=== PATIENT | female | born 1935 | race Caucasian/White ===

== ENCOUNTER 2017-11-12 10:46 | Inpatient (IN) | payer BC ==
[~2017-11-12] VITALS: Ht 160 cm; Wt 72.6 kg
[2017-11-12 10:56] VITALS: BP_SYST 137
[2017-11-12] MEDS ORDERED: ALBUTEROL SULFATE 0.083% 2.5 MG/3 ML VIAL.NEB IH ONE (11:00)
[2017-11-12] MEDS ORDERED: IPRATROPIUM BROM 0.5 MG/2.5 ML VIAL.NEB (ATROVENT) IH ONE (11:00)
[2017-11-12 11:26] LABS: HEMATOCRIT 34.2 % (36-48); HEMOGLOBIN 11.6 g/dL (12.0-16.0); MEAN CORPUSCULAR HEMOGLOBIN 34 pg (27-31); MEAN CORPUSCULAR HGB CONC 34 % (32-36); MEAN CORPUSCULAR VOLUME 101 fL (79.0-98.0); PLATELET COUNT (AUTO) 131 K/uL (130-430); RED BLOOD CELL COUNT(AUTO) 3.37 MIL/uL (4.2-6.2); RED CELL DISTRIBUTION WIDTH 12.7 % (9.0-15.0)
[2017-11-12] MEDS ORDERED: ACETAMINOPHEN 325 MG TABLET PO ONE (11:30)
[2017-11-12] MEDS ORDERED: AZIT250T PO (11:31)
[2017-11-12] MEDS ORDERED: GLUXR500 PO (11:31)
[2017-11-12] MEDS ORDERED: LOSA25TA3 PO (11:31)
[2017-11-12] MEDS ORDERED: AMOX-426 PO (11:31)
[2017-11-12] MEDS ORDERED: DILT-36 PO (11:31)
[2017-11-12] MEDS ORDERED: PHEL5 PO (11:31)
[2017-11-12 11:36] LABS: CALCIUM 8.9 mg/dL (8.4-11.0); CREATININE 0.99 mg/dL (0.55-1.30); GLUCOSE 137 mg/dL (70-99); POTASSIUM 3.7 mmol/L (3.5-5.1); UREA NITROGEN, BLOOD 17 mg/dL (8-21)
[2017-11-12 11:39] LABS: ANION GAP 10 (5-15); SODIUM SERUM 120 mmol/L (136-145)
[2017-11-12 11:40] LABS: CHLORIDE 86 mmol/L (98-107)
[2017-11-12 11:41] LABS: ALANINE AMINOTRANSFERASE 30 U/L (12-78); ALBUMIN 3.5 g/dL (3.4-4.8); ASPARTATE AMINOTRANSFERASE 30 U/L (10-37); TOTAL BILIRUBIN 1.1 mg/dL (0.0-1.0)
[2017-11-12 11:42] LABS: WHITE BLOOD COUNT (AUTO) 56.5 K/uL (4.8-10.8)
[2017-11-12 11:44] LABS: ATYPICAL LYMPHOCYTES % 48 % (0-0); BASOPHILS % (MANUAL) 0 % (0-2); EOSINOPHILS % (MANUAL) 0 % (0-7); LYMPHOCYTES % (MANUAL) 40 % (20-46); MONOCYTES % (MANUAL) 0 % (0-11)
[2017-11-12 12:04] LABS: BILIRUBIN,URINE NEGATIVE (NEGATIVE); BLOOD, URINE 3+ (NEGATIVE); CLARITY/URINE CLEAR (CLEAR); COLOR,URINE YELLOW (YELLOW); GLUCOSE,URINE NEGATIVE (NEGATIVE); KETONES,URINE 1+ (NEGATIVE); LEUKOCYTE ESTERASE ,URINE NEGATIVE (NEGATIVE); NITRITE, URINE NEGATIVE (NEGATIVE); PH,URINE 5.5 (5.0-8.0); PROTEIN URINE 2+ (NEGATIVE)
[2017-11-12] MEDS ORDERED: cefTRIAXone 1 GM IVPB PREMIX 50 ML IV ONE (12:15)
[2017-11-12] MEDS ORDERED: NACL 0.9% 1,000 ML IV ONE (12:15)
[2017-11-12 12:22] LABS: BACTERIA,URINE FEW /HPF (None Seen); RBC,URINE 20-50 /HPF (0-3); WBC,URINE 0-3 /HPF (0-3)
[2017-11-12 12:55] VITALS: BP_SYST 97
[2017-11-12 12:57] VITALS: BP_SYST 137
[2017-11-12] MEDS: NACL 0.9% 1,000 ML IV SCH (13:00)
[2017-11-12] MEDS ORDERED: DEXTROSE 50% JECT 50 ML DISP.SYRIN IVP PRN (13:00)
[2017-11-12] MEDS ORDERED: ALBUTEROL SULFATE 0.083% 2.5 MG/3 ML VIAL.NEB INH PRN (13:00)
[2017-11-12] MEDS ORDERED: IPRATROPIUM BROM 0.5 MG/2.5 ML VIAL.NEB (ATROVENT) INH PRN (13:00)
[2017-11-12] MEDS ORDERED: IPRATROPIUM BROM 0.5 MG/2.5 ML VIAL.NEB (ATROVENT) INH ONE (13:28)
[2017-11-12] MEDS: AZITHROMYCIN 500 MG in NS 250 ML IV SCH (16:02)
[2017-11-12 16:18] VITALS: BP_SYST 109
[2017-11-12] MEDS: INSULIN REGULAR, HUMAN 100 UNITS/ML, 10 ML VIAL (novoLIN R) SUBCUT PRN (17:21)
[2017-11-12] MEDS: IPRATROPIUM BROM 0.5 MG/2.5 ML VIAL.NEB (ATROVENT) INH SCH (19:46)
[2017-11-12] MEDS: ALBUTEROL SULFATE 0.083% 2.5 MG/3 ML VIAL.NEB INH SCH (19:46)
[2017-11-12 21:35] VITALS: BP_SYST 108
[2017-11-13] MEDS: IPRATROPIUM BROM 0.5 MG/2.5 ML VIAL.NEB (ATROVENT) INH SCH ×4 (00:58→19:30)
[2017-11-13] MEDS: ALBUTEROL SULFATE 0.083% 2.5 MG/3 ML VIAL.NEB INH SCH ×4 (00:59→19:30)
[2017-11-13 02:38] VITALS: BP_SYST 107
[2017-11-13] MEDS: NACL 0.9% 1,000 ML IV SCH (05:33)
[2017-11-13 08:05] VITALS: BP_SYST 116
[2017-11-13] MEDS: cefTRIAXone 1 GM in D5W 50 ML IV SCH (08:45)
[2017-11-13] MEDS: LOSARTAN POTASSIUM 25 MG TABLET PO SCH (08:46)
[2017-11-13] MEDS: DILTIAZEM HCL 180 MG CAP.SR.24H PO SCH (08:47)
[2017-11-13] MEDS ORDERED: methylPREDNISolone SOD SUCC/PF 62.5 MG/ML VIAL IVP ONE (09:00)
[2017-11-13 09:09] LABS: HEMATOCRIT 31.4 % (36-48); HEMOGLOBIN 10.4 g/dL (12.0-16.0); MEAN CORPUSCULAR HEMOGLOBIN 34 pg (27-31); MEAN CORPUSCULAR HGB CONC 33 % (32-36); MEAN CORPUSCULAR VOLUME 102 fL (79.0-98.0); PLATELET COUNT (AUTO) 134 K/uL (130-430); RED BLOOD CELL COUNT(AUTO) 3.09 MIL/uL (4.2-6.2); RED CELL DISTRIBUTION WIDTH 12.8 % (9.0-15.0)
[2017-11-13 09:15] LABS: WHITE BLOOD COUNT (AUTO) 48.7 K/uL (4.8-10.8)
[2017-11-13 09:22] LABS: ANION GAP 8 (5-15); CALCIUM 8.7 mg/dL (8.4-11.0); CHLORIDE 87 mmol/L (98-107); CREATININE 1.08 mg/dL (0.55-1.30); GLUCOSE 137 mg/dL (70-99); POTASSIUM 3.6 mmol/L (3.5-5.1); SODIUM SERUM 121 mmol/L (136-145); UREA NITROGEN, BLOOD 20 mg/dL (8-21)
[2017-11-13 09:31] LABS: ALANINE AMINOTRANSFERASE 28 U/L (12-78); ALBUMIN 3.2 g/dL (3.4-4.8); ASPARTATE AMINOTRANSFERASE 29 U/L (10-37)
[2017-11-13 09:35] LABS: TOTAL BILIRUBIN 0.5 mg/dL (0.0-1.0)
[2017-11-13 10:04] LABS: ATYPICAL LYMPHOCYTES % 35 % (0-0); BAND % (MANUAL) 0 % (0-6); BASOPHILS % (MANUAL) 0 % (0-2); EOSINOPHILS % (MANUAL) 0 % (0-7); LYMPHOCYTES % (MANUAL) 58 % (20-46); MONOCYTES % (MANUAL) 0 % (0-11)
[2017-11-13] MEDS: AZITHROMYCIN 500 MG in NS 250 ML IV SCH (12:12)
[2017-11-13 12:14] VITALS: BP_SYST 110
[2017-11-13] MEDS: methylPREDNISolone SOD SUCC/PF 62.5 MG/ML VIAL IVP SCH ×2 (14:50→21:15)
[2017-11-13 16:08] VITALS: BP_SYST 103
[2017-11-13] MEDS: INSULIN REGULAR, HUMAN 100 UNITS/ML, 10 ML VIAL (novoLIN R) SUBCUT PRN (18:05)
[2017-11-13] MEDS ORDERED: FUROSEMIDE 20 MG/2 ML VIAL IVP ONE (19:30)
[2017-11-13 20:10] VITALS: BP_SYST 113
[2017-11-13 23:50] VITALS: BP_SYST 98
[2017-11-14] MEDS: ALBUTEROL SULFATE 0.083% 2.5 MG/3 ML VIAL.NEB INH SCH ×4 (00:02→19:40)
[2017-11-14] MEDS: IPRATROPIUM BROM 0.5 MG/2.5 ML VIAL.NEB (ATROVENT) INH SCH ×4 (00:02→19:40)
[2017-11-14] MEDS: INSULIN REGULAR, HUMAN 100 UNITS/ML, 10 ML VIAL (novoLIN R) SUBCUT PRN ×5 (00:42→23:36)
[2017-11-14] MEDS: NACL 0.9% 1,000 ML IV SCH ×2 (05:18→15:00)
[2017-11-14] MEDS: methylPREDNISolone SOD SUCC/PF 62.5 MG/ML VIAL IVP SCH ×3 (06:12→21:31)
[2017-11-14 07:14] LABS: HEMOGLOBIN 9.8 g/dL (12.0-16.0); MEAN CORPUSCULAR HEMOGLOBIN 34 pg (27-31); MEAN CORPUSCULAR HGB CONC 34 % (32-36); MEAN CORPUSCULAR VOLUME 101 fL (79.0-98.0); RED BLOOD CELL COUNT(AUTO) 2.87 MIL/uL (4.2-6.2); RED CELL DISTRIBUTION WIDTH 12.9 % (9.0-15.0)
[2017-11-14 07:27] LABS: WHITE BLOOD COUNT (AUTO) 59.9 K/uL (4.8-10.8)
[2017-11-14 07:39] LABS: ANION GAP 10 (5-15); CALCIUM 8.6 mg/dL (8.4-11.0); CHLORIDE 91 mmol/L (98-107); CREATININE 1.08 mg/dL (0.55-1.30); GLUCOSE 213 mg/dL (70-99); POTASSIUM 3.6 mmol/L (3.5-5.1); SODIUM SERUM 124 mmol/L (136-145); UREA NITROGEN, BLOOD 24 mg/dL (8-21)
[2017-11-14 07:50] VITALS: BP_SYST 125
[2017-11-14] MEDS: LOSARTAN POTASSIUM 25 MG TABLET PO SCH (08:57)
[2017-11-14] MEDS: DILTIAZEM HCL 180 MG CAP.SR.24H PO SCH (08:59)
[2017-11-14] MEDS: cefTRIAXone 1 GM in D5W 50 ML IV SCH (09:00)
[2017-11-14 12:14] LABS: PLATELET COUNT (AUTO) 118 K/uL (130-430)
[2017-11-14] MEDS: AZITHROMYCIN 500 MG in NS 250 ML IV SCH (12:31)
[2017-11-14 13:23] LABS: ATYPICAL LYMPHOCYTES % 21 % (0-0); BASOPHILS % (MANUAL) 0 % (0-2); EOSINOPHILS % (MANUAL) 0 % (0-7); LYMPHOCYTES % (MANUAL) 73 % (20-46); MONOCYTES % (MANUAL) 0 % (0-11)
[2017-11-14 16:51] VITALS: BP_SYST 118
[2017-11-14 20:12] VITALS: BP_SYST 120
[2017-11-14 23:28] VITALS: BP_SYST 134
[2017-11-15] MEDS: ALBUTEROL SULFATE 0.083% 2.5 MG/3 ML VIAL.NEB INH SCH ×4 (01:45→20:29)
[2017-11-15] MEDS: IPRATROPIUM BROM 0.5 MG/2.5 ML VIAL.NEB (ATROVENT) INH SCH ×4 (01:45→20:29)
[2017-11-15] MEDS: methylPREDNISolone SOD SUCC/PF 62.5 MG/ML VIAL IVP SCH (05:27)
[2017-11-15] MEDS: INSULIN REGULAR, HUMAN 100 UNITS/ML, 10 ML VIAL (novoLIN R) SUBCUT PRN ×4 (05:33→23:06)
[2017-11-15 06:56] LABS: HEMATOCRIT 28.5 % (36-48); HEMOGLOBIN 9.4 g/dL (12.0-16.0); MEAN CORPUSCULAR HEMOGLOBIN 34 pg (27-31); MEAN CORPUSCULAR HGB CONC 33 % (32-36); MEAN CORPUSCULAR VOLUME 102 fL (79.0-98.0); PLATELET COUNT (AUTO) 130 K/uL (130-430); RED CELL DISTRIBUTION WIDTH 13.1 % (9.0-15.0)
[2017-11-15 07:09] LABS: WHITE BLOOD COUNT (AUTO) 71.1 K/uL (4.8-10.8)
[2017-11-15 07:15] LABS: ANION GAP 8 (5-15); CALCIUM 8.5 mg/dL (8.4-11.0); CHLORIDE 97 mmol/L (98-107); CREATININE 0.95 mg/dL (0.55-1.30); GLUCOSE 169 mg/dL (70-99); POTASSIUM 3.6 mmol/L (3.5-5.1); SODIUM SERUM 131 mmol/L (136-145); UREA NITROGEN, BLOOD 28 mg/dL (8-21)
[2017-11-15 08:09] VITALS: BP_SYST 122
[2017-11-15] MEDS: NACL 0.9% 1,000 ML IV SCH (08:22)
[2017-11-15] MEDS: cefTRIAXone 1 GM in D5W 50 ML IV SCH (08:22)
[2017-11-15] MEDS: DILTIAZEM HCL 180 MG CAP.SR.24H PO SCH (08:27)
[2017-11-15] MEDS: LOSARTAN POTASSIUM 25 MG TABLET PO SCH (08:28)
[2017-11-15 09:22] VITALS: BP_SYST 136
[2017-11-15 09:42] LABS: ATYPICAL LYMPHOCYTES % 18 % (0-0); BAND % (MANUAL) 1 % (0-6); BASOPHILS % (MANUAL) 0 % (0-2); EOSINOPHILS % (MANUAL) 0 % (0-7); LYMPHOCYTES % (MANUAL) 74 % (20-46); MONOCYTES % (MANUAL) 0 % (0-11)
[2017-11-15 12:06] VITALS: BP_SYST 137
[2017-11-15] MEDS: AZITHROMYCIN 500 MG in NS 250 ML IV SCH (12:08)
[2017-11-15] MEDS ORDERED: FUROSEMIDE 20 MG/2 ML VIAL IVP ONE (14:15)
[2017-11-15] MEDS: methylPREDNISolone SOD SUCC 40 MG/ML VIAL IVP SCH ×2 (15:19→21:37)
[2017-11-15 16:00] VITALS: BP_SYST 123
[2017-11-15 19:25] VITALS: BP_SYST 119
[2017-11-15 23:56] VITALS: BP_SYST 102
[2017-11-16] MEDS: ALBUTEROL SULFATE 0.083% 2.5 MG/3 ML VIAL.NEB INH SCH ×4 (01:15→20:02)
[2017-11-16] MEDS: IPRATROPIUM BROM 0.5 MG/2.5 ML VIAL.NEB (ATROVENT) INH SCH ×4 (01:16→20:02)
[2017-11-16] MEDS: methylPREDNISolone SOD SUCC 40 MG/ML VIAL IVP SCH ×3 (05:10→22:21)
[2017-11-16] MEDS: NACL 0.9% 1,000 ML IV SCH (05:13)
[2017-11-16] MEDS: INSULIN REGULAR, HUMAN 100 UNITS/ML, 10 ML VIAL (novoLIN R) SUBCUT PRN ×4 (05:15→23:16)
[2017-11-16 06:51] LABS: HEMATOCRIT 28.2 % (36-48); HEMOGLOBIN 9.5 g/dL (12.0-16.0); MEAN CORPUSCULAR HEMOGLOBIN 34 pg (27-31); MEAN CORPUSCULAR HGB CONC 34 % (32-36); MEAN CORPUSCULAR VOLUME 102 fL (79.0-98.0); PLATELET COUNT (AUTO) 131 K/uL (130-430); RED BLOOD CELL COUNT(AUTO) 2.76 MIL/uL (4.2-6.2); RED CELL DISTRIBUTION WIDTH 13.1 % (9.0-15.0)
[2017-11-16 07:01] LABS: WHITE BLOOD COUNT (AUTO) 83.4 K/uL (4.8-10.8)
[2017-11-16 07:12] LABS: ALANINE AMINOTRANSFERASE 57 U/L (12-78); ALBUMIN 2.7 g/dL (3.4-4.8); ANION GAP 5 (5-15); ASPARTATE AMINOTRANSFERASE 34 U/L (10-37); CALCIUM 8.8 mg/dL (8.4-11.0); CHLORIDE 104 mmol/L (98-107); CREATININE 1.08 mg/dL (0.55-1.30); GLUCOSE 171 mg/dL (70-99); POTASSIUM 3.4 mmol/L (3.5-5.1); SODIUM SERUM 135 mmol/L (136-145); TOTAL BILIRUBIN 0.2 mg/dL (0.0-1.0); UREA NITROGEN, BLOOD 30 mg/dL (8-21)
[2017-11-16 08:00] VITALS: BP_SYST 116
[2017-11-16 09:29] LABS: LYMPHOCYTES % (MANUAL) 88 % (20-46)
[2017-11-16 09:30] LABS: ATYPICAL LYMPHOCYTES % 7 % (0-0); BASOPHILS % (MANUAL) 0 % (0-2); EOSINOPHILS % (MANUAL) 0 % (0-7); MONOCYTES % (MANUAL) 0 % (0-11)
[2017-11-16] MEDS: LOSARTAN POTASSIUM 25 MG TABLET PO SCH (09:36)
[2017-11-16] MEDS: DILTIAZEM HCL 180 MG CAP.SR.24H PO SCH (09:36)
[2017-11-16] MEDS: cefTRIAXone 1 GM in D5W 50 ML IV SCH (09:37)
[2017-11-16] MEDS: AZITHROMYCIN 500 MG in NS 250 ML IV SCH (12:02)
[2017-11-16 12:40] VITALS: BP_SYST 119
[2017-11-16] MEDS ORDERED: POTASSIUM CHLORIDE 20 MEQ TAB.PRT.SR PO ONE (14:45)
[2017-11-16 16:16] VITALS: BP_SYST 106
[2017-11-16 19:15] VITALS: BP_SYST 126
[2017-11-16] MEDS: BUDESONIDE 0.5 MG/2 ML AMPUL.NEB INH SCH (20:02)
[2017-11-17 00:51] VITALS: BP_SYST 128
[2017-11-17] MEDS: IPRATROPIUM BROM 0.5 MG/2.5 ML VIAL.NEB (ATROVENT) INH SCH ×4 (01:26→20:53)
[2017-11-17] MEDS: ALBUTEROL SULFATE 0.083% 2.5 MG/3 ML VIAL.NEB INH SCH ×4 (01:26→20:53)
[2017-11-17] MEDS: methylPREDNISolone SOD SUCC 40 MG/ML VIAL IVP SCH ×3 (05:22→21:32)
[2017-11-17] MEDS: INSULIN REGULAR, HUMAN 100 UNITS/ML, 10 ML VIAL (novoLIN R) SUBCUT PRN ×4 (05:27→23:10)
[2017-11-17 06:43] LABS: HEMATOCRIT 30.8 % (36-48); HEMOGLOBIN 10.1 g/dL (12.0-16.0); MEAN CORPUSCULAR HEMOGLOBIN 34 pg (27-31); MEAN CORPUSCULAR HGB CONC 33 % (32-36); MEAN CORPUSCULAR VOLUME 104 fL (79.0-98.0); PLATELET COUNT (AUTO) 151 K/uL (130-430); RED BLOOD CELL COUNT(AUTO) 2.97 MIL/uL (4.2-6.2); RED CELL DISTRIBUTION WIDTH 13.3 % (9.0-15.0)
[2017-11-17 06:51] LABS: ANION GAP 9 (5-15); CALCIUM 8.8 mg/dL (8.4-11.0); CHLORIDE 103 mmol/L (98-107); CREATININE 1.03 mg/dL (0.55-1.30); GLUCOSE 169 mg/dL (70-99); POTASSIUM 3.5 mmol/L (3.5-5.1); SODIUM SERUM 138 mmol/L (136-145); UREA NITROGEN, BLOOD 31 mg/dL (8-21)
[2017-11-17] MEDS: BUDESONIDE 0.5 MG/2 ML AMPUL.NEB INH SCH ×2 (07:00→20:54)
[2017-11-17 07:25] LABS: WHITE BLOOD COUNT (AUTO) 96.5 K/uL (4.8-10.8)
[2017-11-17 08:00] VITALS: BP_SYST 123
[2017-11-17 08:37] LABS: ATYPICAL LYMPHOCYTES % 5 % (0-0); LYMPHOCYTES % (MANUAL) 86 % (20-46)
[2017-11-17 08:38] LABS: BASOPHILS % (MANUAL) 0 % (0-2); EOSINOPHILS % (MANUAL) 0 % (0-7); MONOCYTES % (MANUAL) 5 % (0-11)
[2017-11-17] MEDS: LOSARTAN POTASSIUM 25 MG TABLET PO SCH (09:11)
[2017-11-17] MEDS: DILTIAZEM HCL 180 MG CAP.SR.24H PO SCH (09:12)
[2017-11-17] MEDS: AZITHROMYCIN 500 MG in NS 250 ML IV SCH (09:12)
[2017-11-17] MEDS: cefTRIAXone 1 GM in D5W 50 ML IV SCH (09:13)
[2017-11-17] MEDS ORDERED: CEFEPIME 1 GM in D5W 50 ML IV ONE (11:00)
[2017-11-17 11:59] VITALS: BP_SYST 128
[2017-11-17 16:15] VITALS: BP_SYST 130
[2017-11-17] MEDS: FLUCONAZOLE 200 mg/ NS 100 ML IV SCH (17:00)
[2017-11-17 20:30] VITALS: BP_SYST 139
[2017-11-17] MEDS: CEFEPIME 1 GM in D5W 50 ML IV SCH (20:41)
[2017-11-17] MEDS: metroNIDAZOLE 250 mg/NS 50 ML IV SCH (21:31)
[2017-11-18] VITALS (7 sets, daily range): BP systolic 105–136
[2017-11-18] MEDS: ALBUTEROL SULFATE 0.083% 2.5 MG/3 ML VIAL.NEB INH SCH ×4 (01:18→20:04)
[2017-11-18] MEDS: IPRATROPIUM BROM 0.5 MG/2.5 ML VIAL.NEB (ATROVENT) INH SCH ×4 (01:18→20:04)
[2017-11-18] MEDS: metroNIDAZOLE 250 mg/NS 50 ML IV SCH ×3 (05:28→21:43)
[2017-11-18] MEDS: methylPREDNISolone SOD SUCC 40 MG/ML VIAL IVP SCH ×2 (05:28→21:42)
[2017-11-18] MEDS: INSULIN REGULAR, HUMAN 100 UNITS/ML, 10 ML VIAL (novoLIN R) SUBCUT PRN ×3 (05:34→17:55)
[2017-11-18 06:11] LABS: HEMATOCRIT 31.5 % (36-48); HEMOGLOBIN 10.5 g/dL (12.0-16.0); MEAN CORPUSCULAR HEMOGLOBIN 34 pg (27-31); MEAN CORPUSCULAR HGB CONC 33 % (32-36); MEAN CORPUSCULAR VOLUME 103 fL (79.0-98.0); PLATELET COUNT (AUTO) 171 K/uL (130-430); RED BLOOD CELL COUNT(AUTO) 3.07 MIL/uL (4.2-6.2); RED CELL DISTRIBUTION WIDTH 13.5 % (9.0-15.0)
[2017-11-18 07:05] LABS: ANION GAP 9 (5-15); CALCIUM 9.2 mg/dL (8.4-11.0); CHLORIDE 103 mmol/L (98-107); CREATININE 1.09 mg/dL (0.55-1.30); GLUCOSE 180 mg/dL (70-99); SODIUM SERUM 137 mmol/L (136-145); UREA NITROGEN, BLOOD 33 mg/dL (8-21)
[2017-11-18] MEDS: BUDESONIDE 0.5 MG/2 ML AMPUL.NEB INH SCH ×2 (07:23→20:24)
[2017-11-18] MEDS ORDERED: FUROSEMIDE 40 MG/4 ML VIAL IVP ONE (09:15)
[2017-11-18] MEDS: LOSARTAN POTASSIUM 25 MG TABLET PO SCH (09:30)
[2017-11-18] MEDS: DILTIAZEM HCL 180 MG CAP.SR.24H PO SCH (09:32)
[2017-11-18] MEDS: CEFEPIME 1 GM in D5W 50 ML IV SCH ×2 (09:33→21:42)
[2017-11-18] MEDS: AZITHROMYCIN 500 MG in NS 250 ML IV SCH (10:15)
[2017-11-18 11:27] LABS: ATYPICAL LYMPHOCYTES % 2 % (0-0); BASOPHILS % (MANUAL) 0 % (0-2); EOSINOPHILS % (MANUAL) 0 % (0-7); LYMPHOCYTES % (MANUAL) 93 % (20-46); MONOCYTES % (MANUAL) 0 % (0-11)
[2017-11-18] MEDS ORDERED: ENOXAPARIN SODIUM 40 MG/0.4 ML SYRINGE SUBCUT ONE (11:49)
[2017-11-18] MEDS: FLUCONAZOLE 200 mg/ NS 100 ML IV SCH (16:53)
[2017-11-19 00:17] VITALS: BP_SYST 105
[2017-11-19] MEDS: ALBUTEROL SULFATE 0.083% 2.5 MG/3 ML VIAL.NEB INH SCH ×3 (00:19→13:18)
[2017-11-19] MEDS: IPRATROPIUM BROM 0.5 MG/2.5 ML VIAL.NEB (ATROVENT) INH SCH ×3 (00:20→13:17)
[2017-11-19] MEDS: metroNIDAZOLE 250 mg/NS 50 ML IV SCH (05:17)
[2017-11-19 06:30] LABS: ANION GAP 5 (5-15); CALCIUM 8.8 mg/dL (8.4-11.0); CHLORIDE 103 mmol/L (98-107); CREATININE 1.13 mg/dL (0.55-1.30); GLUCOSE 190 mg/dL (70-99); POTASSIUM 3.8 mmol/L (3.5-5.1); SODIUM SERUM 135 mmol/L (136-145); UREA NITROGEN, BLOOD 36 mg/dL (8-21)
[2017-11-19] MEDS: INSULIN REGULAR, HUMAN 100 UNITS/ML, 10 ML VIAL (novoLIN R) SUBCUT PRN ×2 (06:46→12:22)
[2017-11-19 07:04] LABS: HEMATOCRIT 29.9 % (36-48); MEAN CORPUSCULAR HEMOGLOBIN 34 pg (27-31); MEAN CORPUSCULAR HGB CONC 34 % (32-36); MEAN CORPUSCULAR VOLUME 102 fL (79.0-98.0); PLATELET COUNT (AUTO) 171 K/uL (130-430); RED BLOOD CELL COUNT(AUTO) 2.93 MIL/uL (4.2-6.2)
[2017-11-19 07:52] LABS: WHITE BLOOD COUNT (AUTO) 84.4 K/uL (4.8-10.8)
[2017-11-19] MEDS: BUDESONIDE 0.5 MG/2 ML AMPUL.NEB INH SCH (07:56)
[2017-11-19 08:10] VITALS: BP_SYST 130
[2017-11-19] MEDS: methylPREDNISolone SOD SUCC 40 MG/ML VIAL IVP SCH (08:13)
[2017-11-19] MEDS: LOSARTAN POTASSIUM 25 MG TABLET PO SCH (08:15)
[2017-11-19] MEDS: DILTIAZEM HCL 180 MG CAP.SR.24H PO SCH (08:16)
[2017-11-19] MEDS: CEFEPIME 1 GM in D5W 50 ML IV SCH (08:17)
[2017-11-19] MEDS ORDERED: FUROSEMIDE 20 MG TABLET PO SCH (09:00)
[2017-11-19] MEDS ORDERED: ENOXAPARIN SODIUM 40 MG/0.4 ML SYRINGE SUBCUT SCH (09:00)
[2017-11-19] MEDS ORDERED: POTASSIUM CHLORIDE 8 MEQ TABLET.SA PO SCH (09:00)
[2017-11-19] MEDS: AZITHROMYCIN 500 MG in NS 250 ML IV SCH (09:06)
[2017-11-19 10:55] LABS: ATYPICAL LYMPHOCYTES % 0 % (0-0); BAND % (MANUAL) 0 % (0-6); BASOPHILS % (MANUAL) 0 % (0-2); EOSINOPHILS % (MANUAL) 0 % (0-7); LYMPHOCYTES % (MANUAL) 93 % (20-46); MONOCYTES % (MANUAL) 3 % (0-11)
[2017-11-19 12:02] VITALS: BP_SYST 129
[2017-11-19 15:33] VITALS: BP_SYST 132
[2017-11-19] MEDS: FLUCONAZOLE 200 mg/ NS 100 ML IV SCH (16:17)
[2017-11-19 16:33] VITALS: BP_SYST 132
[2017-11-19] MEDS ORDERED: PREDNISONE 20 MG TABLET PO SCH (21:00)
== END 2017-11-19 17:30 | disposition short-term general hospital (02) | DRG 871 ==
LOC: SED 10:46 → SMU 12:19
PROVIDERS: ADMIT Internal Medicine Hospice and Palliative Medicine; ATTEND Internal Medicine Hospice and Palliative Medicine
DX: A41.9 Sepsis, unspecified organism (principal); J18.9 Pneumonia, unspecified organism; J96.01 Acute respiratory failure with hypoxia; C91.10 Chronic lymphocytic leukemia of B-cell type not having achieved remission; D89.9 Disorder involving the immune mechanism, unspecified; E87.1 Hypo-osmolality and hyponatremia; J44.0 Chronic obstructive pulmonary disease with (acute) lower respiratory infection; D64.9 Anemia, unspecified; J44.1 Chronic obstructive pulmonary disease with (acute) exacerbation; E11.9 Type 2 diabetes mellitus without complications; E78.5 Hyperlipidemia, unspecified; T38.0X5A Adverse effect of glucocorticoids and synthetic analogues, initial encounter; I11.9 Hypertensive heart disease without heart failure; Z80.0 Family history of malignant neoplasm of digestive organs; Z80.1 Family history of malignant neoplasm of trachea, bronchus and lung; Z87.891 Personal history of nicotine dependence; Z90.49 Acquired absence of other specified parts of digestive tract; Y92.89 Other specified places as the place of occurrence of the external cause
CPT/HCPCS: 36415; 36600; 71045; 71250-TC; 80048; 80053; 81000-TC; 82803-TC; 82962; 83605; 83880; 84484; 85007; 85027; 85651-TC; 86480; 86635; 87040-TC; 87070-TC; 87205-TC; 87230-TC; 87305; 93005; 93970; 94640; 94760; 96365; 97110-GP; 97116-GP; 97530-GP; 99285; J0456; J0692; J0696; J1030; J1450; J1650; J1815; J1940; J2930; J3490; J7030; J7050; J7060